=== PATIENT | female | born 1980 | race Two or more races ===

== ENCOUNTER 2019-11-01 15:46 | Emergency (ER) | payer OTHER ==
[~2019-11-01] VITALS: Ht 162.6 cm; Wt 90.7 kg
== END 2019-11-01 20:45 | disposition home or self-care (01) ==
LOC: ER 15:46
DX: O26.891 Other specified pregnancy related conditions, first trimester (principal); R10.2 Pelvic and perineal pain

== ENCOUNTER → 2020-01-15 | Outpatient (CLI) | payer OTHER | END | disposition home or self-care (01) | LOC: PRENATAL 01-05 09:30 | DX: O35.3XX1 Maternal care for (suspected) damage to fetus from viral disease in mother, fetus 1 (principal); O09.512 Supervision of elderly primigravida, second trimester; Z34.02 Encounter for supervision of normal first pregnancy, second trimester ==

== ENCOUNTER 2020-04-23 18:38 | Inpatient (IN) | payer OTHER ==
[~2020-04-23] VITALS: Ht 162.6 cm; Wt 102.5 kg
== END 2020-04-27 16:02 | disposition home or self-care (01) | DRG 832 ==
LOC: LDR 18:38 → OB/GYN 04-26 17:41
PROVIDERS: ADMIT Obstetrics & Gynecology Obstetrics; ATTEND Obstetrics & Gynecology Obstetrics
PROC: 4A1HXFZ Monitoring of Products of Conception, Cardiac Rhythm, External Approach (ICD-10-PCS; principal; 2020-04-23)
DX: O14.03 Mild to moderate pre-eclampsia, third trimester (principal); O23.43 Unspecified infection of urinary tract in pregnancy, third trimester; Z3A.35 35 weeks gestation of pregnancy; Z20.828 Contact with and (suspected) exposure to other viral communicable diseases

== ENCOUNTER 2020-05-09 17:41 | Inpatient (IN) | payer OTHER ==
[~2020-05-09] VITALS: Ht 162.6 cm; Wt 2.7 kg
[2020-05-09] MEDS ORDERED: PRENATAL + DHA1 EAC1 PO (18:35)
[2020-05-09] MEDS ORDERED: METHYLDOPA250 MG PO (18:36)
== END 2020-05-15 14:13 | disposition home or self-care (01) | DRG 788 ==
LOC: SURG-SUITE 17:41 → LDR 17:41 → SURG-SUITE 05-12 12:45
PROVIDERS: ADMIT Obstetrics & Gynecology Obstetrics; ATTEND Obstetrics & Gynecology Obstetrics
PROC: 4A1HXFZ Monitoring of Products of Conception, Cardiac Rhythm, External Approach (ICD-10-PCS; 2020-05-12)
PROC: 3E033VJ Introduction of Other Hormone into Peripheral Vein, Percutaneous Approach (ICD-10-PCS; 2020-05-12)
PROC: 10D00Z1 Extraction of Products of Conception, Low, Open Approach (ICD-10-PCS; principal; 2020-05-12 12:00)
DX: O13.4 Gestational [pregnancy-induced] hypertension without significant proteinuria, complicating childbirth (principal); Z3A.37 37 weeks gestation of pregnancy; Z37.0 Single live birth

== ENCOUNTER 2022-07-16 10:24 | Outpatient (CLI) | payer OTHER ==
[~2022-07-16 10:24] MED LIST: METHYLDOPA250 MG PO; PRENATAL + DHA1 EAC1 PO
== END 2022-07-16 10:26 | disposition home or self-care (01) ==
LOC: TOM 10:24
DX: R51.9 Headache, unspecified (principal)